=== PATIENT | male | born 1995 | race African-American/Black ===

== ENCOUNTER 2017-12-09 16:18 | Emergency (ER) | payer MEDICAID ==
[~2017-12-09] VITALS: Ht 167.6 cm; Wt 71.0 kg
[2017-12-09 16:21] VITALS: BP 115/62
[2017-12-09] MEDS ORDERED: METHOCARBAMOL 750 MG TABLET PO ONE (18:00)
== END 2017-12-09 18:29 | disposition home or self-care (01) ==
LOC: ED 17:55
DX: S29.012A Strain of muscle and tendon of back wall of thorax, initial encounter (principal); W01.0XXA Fall on same level from slipping, tripping and stumbling without subsequent striking against object, initial encounter; Y93.89 Activity, other specified; Y92.009 Unspecified place in unspecified non-institutional (private) residence as the place of occurrence of the external cause; Y99.8 Other external cause status
CPT/HCPCS: 72072; 99284